=== PATIENT | female | born 2000 | race Two or more races ===

== ENCOUNTER 2021-01-17 03:11 | Inpatient (IN) ==
[2021-01-17] MEDS ORDERED: OXYTOCIN 30 UNITS/500 ML BAG IV PRN ×2 (04:50→14:17)
[2021-01-17 05:01] LABS: Amphetamines+Metham, Urine Neg (Neg); Barbiturates, Urine Neg (Neg); Benzodiazepine, Urine Neg (Neg); Cocaine, Urine Neg (Neg); MDMA (Ecstacy), Urine Neg (Neg); Methadone, Urine Neg (Neg); Opiate, Urine Neg (Neg); Phencyclidine, Urine Neg (Neg)
[2021-01-17 05:31] LABS: Hematocrit (blood only) 34.3 % (37-47); Hemoglobin 11.3 g/dL (12.0-16.0); Mean Corpuscular Hemoglobin 31.6 pg (25-34); Mean Corpuscular Hgb Conc 32.9 g/dL (32-36); Mean Corpuscular Volume 95.8 fL (80-100); Mean Platelet Volume 11.4 fL (7.4-10.4); Platelet Count 175 K/uL (130-400); RDW Coefficient of Variation 13.3 % (11.5-14.5); RDW Standard Deviation 45.9 fL (36.4-46.3); Red Blood Count 3.58 M/uL (4.2-5.4); White Blood Count 15.54 K/uL (4.8-10.8)
[2021-01-17] MEDS ORDERED: BUTORPHANOL TARTRATE 1 MG/ML VIAL IV PRN (06:22)
[2021-01-17] MEDS: LACTATED RINGER'S 1,000 ML IV PRN ×2 (06:50→09:56)
--- NOTE | 2021-01-17 09:29 | Labor Progress Brief Note ---
Date of Service January 17, 2021 Assessment & Plan Admission and Anticipated Discharge Date Admission Date: January 17, 2021 Physical Exam Genitourinary: Manual OB Exam: + cervical dilation 5 cm, + cervical effacement 80%, + station -1 and + amniotic fluid clear OB Exam Monitor Tracing: + external FHT monitor used, + external uterine monitor used, + category I and + normal FHT variability patient requesting epidural Results & Data ([facility]) Vital Signs (Past 12 Hours) Vital Signs Temp Pulse Resp BP Pulse Ox 01/17/21 09:19 37 C 01/17/21 07:23 82 98 01/17/21 07:18 88 98 01/17/21 07:13 98 H 98 01/17/21 07:11 36.7 C 77 20 115/66 01/17/21 07:08 93 H 99 01/17/21 07:03 92 H 99 01/17/21 06:58 83 100 01/17/21 06:53 78 99 01/17/21 06:50 36.7 C 18 01/17/21 06:48 85 99 01/17/21 06:43 95 H 98 01/17/21 06:38 85 99 01/17/21 06:29 74 128/66 01/17/21 05:05 36.6 C 18 01/17/21 03:50 37.2 C 93 H 18 127/77 01/17/21 03:30 93 H 123/77
--- NOTE | 2021-01-17 09:34 | History & Physical Report ---
Date of Service January 17, 2021 Assessment & Plan (1) Term : Admission and Anticipated Discharge Date Admission Date: January 17, 2021 History of Present Illness Chief Complaint: SROM in labor at term Primary Care Provider: ELODIA PCP 20 F [id number] at 39.4 admitted in labor with SROM clear fluid. Patient of [facility] seen here due to visiting from out of town. EDC 01/20/21. Allergies Allergy/AdvReac Type Severity Reaction Status Date / Time No Known Allergies Allergy Unverified 01/17/21 03:40 Home Medications Medication Instructions Recorded Confirmed Type ilrqbfxw-[id number]-[id number]-FA 1 mg 1 tab PO DAILY 01/17/21 01/17/21 History tablet Past Med/Surg History Medical History Anxiety and depression Surgical History [place] teeth removed Social History Smoking Status: Current every day smoker Cigarettes Per Day: 12 STICKS OF CIGARETTES IN A DAY.; Do You Dip or Chew Tobacco: No; Tobacco Cessation Education Requested by Patient: No Hx Alcohol Use: Yes Alcohol type: beer and hard liquor Hx Substance Use: Yes Last Used Substance Other:: One year ago. Preferred Language: [place] [employer] Required: No Beliefs That Will Affect Care: None marital status: Single Current Living Situation: Significant Other Feels Safe at Home: Yes Safety Concerns: Feels Safe At This Time Review of Systems Review of Systems: All systems reviewed & are unremarkable except as noted in HPI & below Physical Exam Constitutional: WD/WN, vitals as above Eyes: PERRL, conjunctivae normal, anicteric sclerae Respiratory: normal respiratory effort, lungs clear to auscultation Cardiovascular: RRR, no murmur, no edema Skin: no rashes, warm and dry Neurologic: patellar DTR's 2+ bilat, sensation intact Psychiatric: A+Ox3, euthymic affect Genitourinary: OB Exam Monitor Tracing: + external FHT monitor used, + external uterine monitor used, + category I and + normal FHT variability Results & Data Results & Data ([facility]) Vital Signs (Past 12 Hours) Vital Signs Temp Pulse Resp BP Pulse Ox 01/17/21 09:19 37 C 01/17/21 07:23 82 98 01/17/21 07:18 88 98 01/17/21 07:13 98 H 98 01/17/21 07:11 36.7 C 77 20 115/66 01/17/21 07:08 93 H 99 01/17/21 07:03 92 H 99 01/17/21 06:58 83 100 01/17/21 06:53 78 99 01/17/21 06:50 36.7 C 18 01/17/21 06:48 85 99 01/17/21 06:43 95 H 98 01/17/21 06:38 85 99 01/17/21 06:29 74 128/66 01/17/21 05:05 36.6 C 18 01/17/21 03:50 37.2 C 93 H 18 127/77 01/17/21 03:30 93 H 123/77 Code Status & VTE Plan VTE Prophylaxis Plan VTE Prophylaxis will be ordered: No
[2021-01-17] MEDS ORDERED: BUPIVACAINE 0.25% 30 ML VIAL ONE ×2 (09:38→11:41)
[2021-01-17] MEDS ORDERED: SODIUM CHLORIDE 0.9% INJ 10 ML VIAL ONE (09:38)
[2021-01-17] MEDS ORDERED: fentaNYL citrate 100 MCG/2 ML VIAL ONE ×2 (09:38→11:42)
[2021-01-17] MEDS ORDERED: ePHEDrine sulfate 50 MG/ML AMP ONE (09:38)
[2021-01-17] MEDS ORDERED: fentaNYL 2MCG/ML ROPIVACAINE 1.25MG/ML 100 ML BAG EPI ONE (09:39)
--- NOTE | 2021-01-17 09:51 | Anesthesiology Consultation ---
Date of Service January 17, 2021 Assessment & Plan (1) Encounter for pre-operative examination: Chart Review Chart Review: Acceptable Risk for Surgery and Patient NOT seen in Pre Admission Testing Consults Requested none History Height/Weight Height: 5 ft 5 in Weight: 88.451 kg Allergies Allergy/AdvReac Type Severity Reaction Status Date / Time No Known Allergies Allergy Unverified 01/17/21 03:40 Medications Home Medications Medication Instructions Recorded Confirmed Last Taken gxvnuise-jib-Di-FA 1 mg 1 tab PO DAILY 01/17/21 01/17/21 01/16/21 tablet Active Medications Generic Name Dose Route Start Last Admin Trade Name Freq PRN Reason Stop Dose Admin Butorphanol Tartrate 1 mg 01/17/21 06:22 01/17/21 06:57 Butorphanol Tartrate 1 Mg/Ml Vial IV 02/16/21 06:21 1 mg PRN PRN Administration Pain Lactated Ringer's 1,000 mls @ 125 mls/hr 01/17/21 04:50 01/17/21 09:32 Lr IV 01/19/21 04:49 999 mls/hr .Q8H PRN Infusion L&D Protocol Protocol Past Medical History Medical History Anxiety and depression Past Surgical History Surgical History [place] teeth removed Social History Smoking Status: Current every day smoker tobacco type: cigarettes Smoking cigarettes per day: 12 STICKS OF CIGARETTES IN A DAY. Do You Dip or Chew Tobacco: No Hx Alcohol Use: Yes Alcohol type: beer and hard liquor alcohol intake frequency: a few times a month Hx Substance Use: Yes substance use type: former substance user and marijuana Last Used Substance Other:: One year ago. Physical Exam Vital Signs Last Vital Signs Temp 98.6 F 01/17/21 09:19 Pulse 82 01/17/21 07:23 Resp 20 01/17/21 07:11 BP 115/66 01/17/21 07:11 Pulse Ox 98 01/17/21 07:23 Testing Laboratory Results 01/17/21 05:21
[2021-01-17] MEDS ORDERED: fentaNYL 2MCG/ML ROPIVACAINE 1.25MG/ML 100 ML BAG EPI PRN (09:53)
[2021-01-17] MEDS ORDERED: ePHEDrine sulfate 50 MG/ML AMP IV PRN (09:53)
[2021-01-17] MEDS ORDERED: NALOXONE HCL 1 MG in SODIUM CHLORIDE 0.9% 1000ML 1,000 ML IV PRN (09:53)
[2021-01-17] MEDS ORDERED: NALBUPHINE HCL INJ 10 MG/ML AMP IV PRN (09:53)
[2021-01-17] MEDS ORDERED: NALOXONE HCL 0.4 MG/1 ML VIAL/CARP IV PRN (09:53)
[2021-01-17] MEDS ORDERED: diphenhydrAMINE 50 MG/ML VIAL IV PRN (09:53)
--- NOTE | 2021-01-17 11:27 | Labor Progress Brief Note ---
Date of Service January 17, 2021 Assessment & Plan Admission and Anticipated Discharge Date Admission Date: January 17, 2021 Physical Exam Genitourinary: Manual OB Exam: + cervical dilation 8 cm and 9 cm, + cervical effacement 100% and + station 0 OB Exam Monitor Tracing: + external FHT monitor used, + external uterine monitor used, + category I and + normal FHT variability patients epidural not working has strong urge to push and encouraged to breathe through contractions Results & Data ([facility]) Vital Signs (Past 12 Hours) Vital Signs Temp Pulse Resp BP Pulse Ox 01/17/21 11:21 90 94 01/17/21 11:16 93 H 97 01/17/21 11:15 96 H 107/63 01/17/21 11:11 97 H 95 01/17/21 11:06 105 H 96 01/17/21 11:04 91 H 94 01/17/21 11:01 105 H 96 01/17/21 11:00 96 H 108/56 L 01/17/21 10:56 91 H 95 01/17/21 10:54 94 H 94 01/17/21 10:51 110 H 98 01/17/21 10:46 101 H 96 01/17/21 10:45 97 H 115/63 01/17/21 10:41 95 H 95 01/17/21 10:39 98 H 94 01/17/21 10:36 106 H 97 01/17/21 10:31 95 H 96 01/17/21 10:26 93 H 96 01/17/21 10:21 97 H 97 01/17/21 10:16 101 H 99 01/17/21 10:14 96 H 123/66 01/17/21 10:12 98 H 116/68 01/17/21 10:11 97 H 98 01/17/21 10:10 92 H 111/65 01/17/21 10:08 96 H 116/69 01/17/21 10:06 88 112/74 98 01/17/21 10:03 85 123/86 01/17/21 10:01 90 98 01/17/21 09:56 91 H 126/89 98 01/17/21 09:51 93 H 98 01/17/21 09:19 37 C 01/17/21 07:23 82 98 01/17/21 07:18 88 98 01/17/21 07:13 98 H 98 01/17/21 07:11 36.7 C 77 20 115/66 01/17/21 07:08 93 H 99 01/17/21 07:03 92 H 99 01/17/21 06:58 83 100 01/17/21 06:53 78 99 01/17/21 06:50 36.7 C 18 01/17/21 06:48 85 99 01/17/21 06:43 95 H 98 01/17/21 06:38 85 99 01/17/21 06:29 74 128/66 01/17/21 05:05 36.6 C 18 01/17/21 03:50 37.2 C 93 H 18 127/77 01/17/21 03:30 93 H 123/77
--- NOTE | 2021-01-17 14:11 | Delivery Summary ---
Vaginal Delivery Summary Date of Service January 17, 2021 Vaginal Delivery Summary Delivery Note live male WAYNE over intact perineum with nuchal cord x1 reduced on the perineum with delayed cord clamping and Apgars 8/9 weight pending. Cord blood obtained followed by spontaneous delivery of intact placenta. No tears. EBL 150 ml. Final sponge and instrument count are correct. Mom and baby stable.
[2021-01-17] MEDS ORDERED: BENZOCAINE 20% AER SPR 82.5 GM CAN EXT PRN (14:17)
[2021-01-17] MEDS ORDERED: HYDROCORTISONE ACETATE 25 MG SUPP PR PRN (14:17)
[2021-01-17] MEDS ORDERED: ACETAMINOPHEN 325 MG TAB PO PRN (14:17)
[2021-01-17] MEDS ORDERED: bisacodyL 10 MG SUPP PR PRN (14:17)
[2021-01-17] MEDS ORDERED: SUPERCREAM 0.870% 15 GM JAR EXT PRN (14:17)
[2021-01-17] MEDS ORDERED: DIPHTHERIA/TETANUS/PERTUSSIS 0.5 ML SYR/VIAL IM ONE (14:17)
--- NOTE | 2021-01-17 14:29 | Anesthesia Procedure Note ---
Date of Service January 17, 2021 Anesthesia Post Epidural Note Vital Signs Vital Signs: Temp Pulse Resp BP Pulse Ox 99.1 F 114 H 18 119/77 95 01/17/21 14:01 01/17/21 14:17 01/17/21 14:15 01/17/21 14:17 01/17/21 13:51 Pain Intensity Abdomen: Pain Intensity: 9 Notes Mental Status: alert / awake / arousable and participated in evaluation Nausea / Vomiting: adequately controlled Pain: adequately controlled Airway Patency, RR, SpO2: stable & adequate BP & HR: stable & adequate Hydration State: stable & adequate Neuraxial Anesthesia: was administered and sensory block is resolving Anesthetic Complications: no major complications apparent and Pt Satisfied with anesthetic care Epidural: Removed without complications and With tip intact
[2021-01-17] MEDS: DOCUSATE SODIUM 100 MG CAP PO SCH (21:36)
[2021-01-17] MEDS: IBUPROFEN 600 MG TAB PO PRN (23:51)
[2021-01-18 06:36] LABS: Hematocrit (blood only) 29.5 % (37-47); Hemoglobin 9.9 g/dL (12.0-16.0); Mean Corpuscular Hemoglobin 32.5 pg (25-34); Mean Corpuscular Hgb Conc 33.6 g/dL (32-36); Mean Corpuscular Volume 96.7 fL (80-100); Mean Platelet Volume 11.4 fL (7.4-10.4); Platelet Count 149 K/uL (130-400); RDW Coefficient of Variation 13.6 % (11.5-14.5); RDW Standard Deviation 47.9 fL (36.4-46.3); Red Blood Count 3.05 M/uL (4.2-5.4); White Blood Count 19.09 K/uL (4.8-10.8)
--- NOTE | 2021-01-18 07:10 | Obstetrical Progress Note ---
Date of Service January 18, 2021 Subjective Ambulation: ambulating normally Voiding: no voiding problems Diet Tolerance:: regular diet Lochia:: Small Feeding Type:: breast feeding Current Pain Level(1-10): 0 PPD#1 doing well Physical Exam Constitutional WD/WN, vitals as above comfortable abdomen soft and non tender fundus firm no edema neg Jory's tent d/c in AM Results & Data ([facility]) Vital Signs (Past 12 Hours) Vital Signs Temp Pulse Resp BP Pulse Ox 01/18/21 04:00 36.8 C 86 16 114/77 98 01/17/21 23:30 36.9 C 90 16 120/81 97 01/17/21 19:30 36.9 C 85 16 126/82 98 Laboratory Results Laboratory Results - last 72 hr 01/17/21 01/17/21 01/17/21 03:30 04:55 04:55 WBC RBC Hgb Hct MCV MCH MCHC RDW Std Deviation RDW Coeff of Fabian Plt Count MPV Urine Opiates Screen Neg Ur Methadone, Qual Neg Urine Barbiturates Neg Ur Phencyclidine (PCP) Neg U Amphetamin/Meth Scrn Neg MDMA (Ecstasy) Screen Neg U Benzodiazepines Scrn Neg Ur Cocaine Metabolite Neg U Marijuana (THC) Screen Neg COVID[facility]19 [facility] SARS-CoV-2, RNA, NAAT NEGATIVE 01/17/21 01/18/21 05:21 06:07 WBC 15.54 H 19.09 H RBC 3.58 L 3.05 L Hgb 11.3 L 9.9 L Hct 34.3 L 29.5 L MCV 95.8 96.7 MCH 31.6 32.5 MCHC 32.9 33.6 RDW Std Deviation 45.9 47.9 H RDW Coeff of Fabian 13.3 13.6 Plt Count 175 149 MPV 11.4 H 11.4 H Urine Opiates Screen Ur Methadone, Qual Urine Barbiturates Ur Phencyclidine (PCP) U Amphetamin/Meth Scrn MDMA (Ecstasy) Screen U Benzodiazepines Scrn Ur Cocaine Metabolite U Marijuana (THC) Screen COVID-19 Eval Order SARS-CoV-2, RNA, NAAT
[2021-01-18] MEDS ORDERED: PRENATAL VITAMIN 1 TAB PO SCH (08:00)
[2021-01-18] MEDS: DOCUSATE SODIUM 100 MG CAP PO SCH (08:01)
[2021-01-18] MEDS: IBUPROFEN 600 MG TAB PO PRN ×3 (08:02→16:03)
[2021-01-18] MEDS ORDERED: NON-FORMULARY MEDICATION (Prenatal Multivit-Min-Fe-Fa 1 mg Tablet) PO SCH (09:00)
[2021-01-18] MEDS ORDERED: bisacodyL 5 MG TABEC PO SCH (20:00)
== END 2021-01-18 16:45 | disposition home or self-care (01) | DRG 807 ==
LOC: OPB 03:11 → 4S1 03:13 → 4S2 16:36